=== PATIENT | female | born 1990 | race Two or more races ===

== ENCOUNTER 2022-03-10 23:58 | Inpatient (IN) ==
[2022-03-11] MEDS ORDERED: LACTATED RINGERS 500 ML IV PRN (00:13)
[2022-03-11] MEDS ORDERED: miSOPROStoL 200 MCG TABLET RECTAL PRN (00:13)
[2022-03-11] MEDS ORDERED: METHYLERGONOVINE 0.2 MG/1 ML AMP IM PRN ×2 (00:13→11:02)
[2022-03-11] MEDS ORDERED: TRANEXAMIC ACID 1,000 MG in SODIUM CHLORIDE 0.9% 100 ML IV PRN ×2 (00:13→12:00)
[2022-03-11] MEDS ORDERED: CARBOPROST TROMETHAMINE 250 MCG/ML AMP IM PRN ×2 (00:13)
[2022-03-11] MEDS ORDERED: FAMOTIDINE 20 MG/2 ML VIAL IV PRN (00:13)
[2022-03-11] MEDS ORDERED: BUTORPHANOL 2 MG/ML VIAL IV PRN (00:13)
[2022-03-11] MEDS ORDERED: MEPERIDINE 50 MG/1 ML VIAL IV PRN ×2 (00:13)
[2022-03-11] MEDS ORDERED: BUTORPHANOL 1 MG/ML VIAL IV PRN (00:13)
[2022-03-11] MEDS ORDERED: ACETAMINOPHEN 500 MG TABLET PO PRN (00:13)
[2022-03-11] MEDS ORDERED: LACTATED RINGERS 250 ML IV ONE (00:13)
[2022-03-11] MEDS ORDERED: OXYTOCIN/LR 20 UNIT/1,000 ML BAG IV ONE ×2 (00:13→16:12)
[2022-03-11] MEDS ORDERED: ONDANSETRON 4 MG/2 ML VIAL IV PRN ×2 (00:13→16:12)
[2022-03-11] MEDS ORDERED: miSOPROStoL 200 MCG TABLET VAG PRN (00:13)
[2022-03-11 00:51] LABS: Basophils % 0.1 % (0.0-0.8); Eosinophils # 0.1 10*3/uL (0.0-0.87); Eosinophils % 1.2 % (0.00-10.9); Hemoglobin 9.6 GM/DL (12.0-16.0); Immature Granulocytes % 0.4 %; Immature Granulocytes Absolute 0.03 #; Lymphocytes # 2.1 10*3/uL (1.4-4.0); Lymphocytes % 30.4 % (21.3-54.2); Mean Platelet Volume 10.6 FL (9.6-12.0); Monocytes # 0.6 10*3/uL (0.11-0.8); Monocytes % 8.7 % (1.7-12.7); Neutrophils % 59.2 % (38.7-73.9); Platelet Count 212 T/CUMM (130-400); Red Blood Count 3.49 MC/CUMM (3.8-5.5); Red Cell Distribution Width 13.3 % (9.3-17.3); White Blood Count 6.8 T/CUMM (4-12)
[2022-03-11 00:58] LABS: Alanine Aminotransferase 23 U/L (13-56); Albumin 2.4 G/DL (3.4-5.0); Alkaline Phosphatase 155 U/L (45-117); Aspartate Amino Transferase 22 U/L (0-37); Bilirubin,Total < 0.39 MG/DL (0.20-1.00); Blood Urea Nitrogen 14 MG/DL (7-18); Calcium 9.1 MG/DL (8.5-10.1); Carbon Dioxide 22 MMOL/L (21-32); Chloride 107 MMOL/L (98-107); Glucose 102 MG/DL (74-106); Osmolality,Calculated 273.8 MOS/KG (273-304); Potassium 3.8 MMOL/L (3.5-5.1); Sodium 137 MMOL/L (136-145); Total Protein 7.3 G/DL (6.4-8.2)
[2022-03-11] MEDS: LACTATED RINGERS 1,000 ML IV SCH ×2 (05:31→14:00)
[2022-03-11] MEDS ORDERED: OXYTOCIN/LR 20 UNIT/1,000 ML BAG IV SCH (11:00)
[2022-03-11] MEDS ORDERED: ePHEDrine 50 MG/ML VIAL IV PRN (13:49)
[2022-03-11] MEDS ORDERED: NALOXONE 0.4 MG/ML VIAL IV PRN (13:49)
[2022-03-11] MEDS ORDERED: CITRIC ACID/SODIUM CITRATE 30 ML UDCUP PO ONE (13:49)
[2022-03-11] MEDS ORDERED: diphenhydrAMINE 50 MG/1 ML VIAL IV PRN ×2 (13:49)
[2022-03-11] MEDS ORDERED: fentaNYL 2 MCG/ROPIV 0.2% EPID 100 ML EPIDURAL SCH (14:00)
[2022-03-11] MEDS ORDERED: OXYTOCIN/LR 30 UNIT/1,000 ML BAG IV ONE (14:53)
[2022-03-11 15:56] LABS: Bacteria,Urine Occasional /HPF (Few); RBC,Urine 1 /HPF (0-4)
[2022-03-11 15:58] LABS: Cord Arterial Blood HCO3 15.8 MMOL/L
[2022-03-11 16:05] LABS: Cord Venous Blood HCO3 17.1 MMOL/L; Cord Venous Blood PCO2 49.9 MMHG; Cord Venous Blood PO2 18.9
[2022-03-11] MEDS ORDERED: LANOLIN 50% CREAM 0.3 OZ TUBE TOP PRN (16:12)
[2022-03-11] MEDS ORDERED: DIPH/TET/ACEL PERT BOOSTER VACCINE 0.5 ML VIAL IM ONE (16:12)
[2022-03-11] MEDS ORDERED: IBUPROFEN 800 MG TABLET PO PRN (16:12)
[2022-03-11] MEDS ORDERED: HYDROCORTISONE 2.5% RECTAL CREAM 30 GM TUBE TOP PRN (16:12)
[2022-03-11] MEDS ORDERED: MEASLES/MUMPS/RUBELLA VACCINE 0.5 ML VIAL SUBCUT ONE (16:12)
[2022-03-11] MEDS ORDERED: ACETAMINOPHEN 325 MG TABLET PO PRN (16:12)
[2022-03-11] MEDS ORDERED: oxyCODONE/ACETAMINOPHEN 5-325 MG TABLET PO PRN ×2 (16:12)
[2022-03-11] MEDS ORDERED: RHO(D) IMMUNE GLOBULIN 300 MCG SYRINGE IM ONE (16:12)
[2022-03-11] MEDS ORDERED: WITCH HAZEL PADS 100/JAR TOP PRN (16:12)
[2022-03-11] MEDS ORDERED: BISACODYL 10 MG SUPP RECTAL PRN (16:12)
[2022-03-11] MEDS ORDERED: BENZOCAINE 20%/MENTHOL 0.5% SPRAY 56 GM CAN TOP PRN (16:12)
[2022-03-11 16:14] LABS: Bilirubin,Urine Negative (Negative); Blood, Urine Negative (Negative); Glucose,Urine (UA) Negative (Negative); Ketones,Urine Negative (Negative); Nitrite,Urine Negative (Negative); Protein,Urine Negative (Negative); Urine Appearance Clear (Clear); Urine Color Yellow (Yellow); Urine Specific Gravity 1.015 (1.001-1.035); Urine Urobilinogen 0.2 eU/dL (<2.0)
[2022-03-12 06:05] LABS: Basophils % 0.1 % (0.0-0.8); Eosinophils # 0.1 10*3/uL (0.0-0.87); Eosinophils % 1.1 % (0.00-10.9); Hematocrit 29.3 VOL% (35.7-47.0); Hemoglobin 9.1 GM/DL (12.0-16.0); Immature Granulocytes % 0.6 %; Immature Granulocytes Absolute 0.06 #; Lymphocytes # 2.3 10*3/uL (1.4-4.0); Mean Corpuscular HGB Conc 31.1 GM/DL (32-36); Mean Corpuscular Volume 85.7 FL (87-102); Monocytes # 0.7 10*3/uL (0.11-0.8); Monocytes % 6.9 % (1.7-12.7); Neutrophils % 67.3 % (38.7-73.9); Platelet Count 193 T/CUMM (130-400); Red Blood Count 3.42 MC/CUMM (3.8-5.5); Red Cell Distribution Width 13.3 % (9.3-17.3); White Blood Count 9.6 T/CUMM (4-12)
[2022-03-12] MEDS: DOCUSATE SODIUM 100 MG CAPSULE PO SCH ×2 (09:05→21:58)
[2022-03-13 07:15] VITALS: BP 124/69
[2022-03-13] MEDS ORDERED: MULTIVITAMIN (PRENATAL) TABLET PO SCH (09:00)
[2022-03-13] MEDS: DOCUSATE SODIUM 100 MG CAPSULE PO SCH (09:39)
[2022-03-13] MEDS ORDERED: DIPH/TET/ACEL PERT BOOSTER VACCINE 0.5 ML VIAL IM ONE (14:03)
== END 2022-03-13 13:25 | disposition home or self-care (01) | DRG 807 ==
LOC: N.LD 23:58 → N.OB 03-11 17:49
PROVIDERS: ADMIT Obstetrics & Gynecology; ATTEND Obstetrics & Gynecology